=== PATIENT | female | born 1995 | race African-American/Black ===

== ENCOUNTER 2017-05-22 16:51 | Emergency (ER) | payer SELFPAY ==
[~2017-05-22] VITALS: Ht 175.3 cm; Wt 90.0 kg
[2017-05-22 17:34] VITALS: BP 128/68; PULSE 82; RESP 18; TEMP 98.4; O2SAT 99
--- NOTE | 2017-05-22 18:25 | PD ---
HPI Chief Complaint: Cold / Flu Symptoms Time Seen by Provider: 18:16 Travel History International Travel<30 days: No Contact w/Intl Traveler<30days: No Traveled to known affect area: No History of Present Illness HPI This is a 21-year-old female who presents for evaluation of nausea, vomiting, diarrhea. Symptoms started this morning. She reports 2 episodes of nonbloody emesis as well as 2 episodes of loose watery stool. She endorses a slight sore throat as well. She was able to eat some yogurt today. She denies eating anything unusual yesterday. Denies any sick contacts. Denies any abdominal pain, fevers, chills, myalgias, cough, congestion, rash or recent travel. Denies any dysuria or flank pain. She has no other complaints at this time. [facility] Past Medical History Medical History: Denies Significant Hx Developmental Delay: No Diminished Hearing: No Immunizations Current: Yes ?: Unknown Past Surgical History Surgical History: No Previous Surgery Social History Alcohol Use: No Tobacco Use: No Substance Use: No Allergies-Medications (Allergen,Severity, Reaction): Coded Allergies: No Known Allergies (Unverified Adverse Reaction, Unknown, 05/22/17) Reported Meds & Prescriptions Reported Meds & Active Scripts Active Zofran (Ondansetron HCl) 4 Mg Tab 4 Mg PO Q6HR PRN Magic Mouthwash Adult Liq (Multi-Ingredient Mouthwash/Gargle) 120 Ml Susp 10 Ml SWISH-SPIT ACHS Each 5mL contains: Nystatin 200,000units, Diphenhydramine 4.25mg, Viscous Lidocaine 10mg, Zafar syrup 0.8 mL Review of Systems Except as stated in HPI: all other systems reviewed are Neg Physical Exam Narrative GENERAL: Well-developed well-nourished female in no acute distress SKIN: Warm and dry. HEAD: Atraumatic. Normocephalic. EYES: Pupils equal and round. No scleral icterus. No injection or drainage. ENT: No nasal bleeding or discharge. Mucous membranes pink and moist. No oropharyngeal erythema or exudate. NECK: Trachea midline. No JVD. No lymphadenopathy. CARDIOVASCULAR: Regular rate and rhythm. No murmur appreciated. RESPIRATORY: No accessory muscle use. Clear to auscultation. Breath sounds equal bilaterally. GASTROINTESTINAL: Abdomen soft, non-tender, nondistended. Hepatic and splenic margins not palpable. MUSCULOSKELETAL: No obvious deformities. No clubbing. No cyanosis. No edema. NEUROLOGICAL: Awake and alert. No obvious cranial nerve deficits. Motor grossly within normal limits. Normal speech. Data Data Last Documented VS Vital Signs Date Time Temp Pulse Resp B/P (MAP) Pulse Ox O2 Delivery O2 Flow Rate FiO2 05/22/17 17:34 98.4 82 18 128/68 (88) 99 Orders Orders Influenzae A/B Antigen (05/22/17 16:58) Oral Rehydration (05/22/17 18:20) Ed Urine Pregnancytest Poc (05/22/17 18:20) Ondansetron Odt (Zofran Odt) (05/22/17 18:30) Ed Discharge Order (05/22/17 18:48) [facility] Medical Decision Making Medical Screen Exam Complete: Yes Emergency Medical Condition: Yes Medical Record Reviewed: Yes Differential Diagnosis Gastroenteritis, dehydration, pharyngitis, influenza, colitis Narrative Course 21-year-old female with one-day history of nausea, vomiting, diarrhea, sore throat. She appears well. Her abdomen is soft and nontender. She does not appear dehydrated. An influenza antigen test was performed in triage and is negative. Urine test was performed and is negative. The patient was given oral rehydration after Zofran with no difficulty. She'll be discharged with a short course of Zofran as well as magic mouthwash for her sore throat. Diagnosis Primary Impression: Nausea and vomiting Additional Impression: Pharyngitis Additional Instructions: Medication as needed. Stay well hydrated and well-nourished. Advance diet as tolerated. Return for any emergent medical conditions. Med/Other Pt SpecificInfo: Prescription(s) given Scripts Ondansetron (Zofran) 4 Mg Tab 4 MG PO Q6HR Y for NAUSEA OR VOMITING, #20 TAB 0 Refills Prov: Naseem Lee MD 05/22/17 Bbgpwfmv-Pexnxomaljxutvr-Bnteyutgu Liq (Magic Mouthwash Adult Liq) 120 Ml Susp 10 ML SWISH-SPIT ACHS for Mouth sores, #120 ML 0 Refills Each 5mL contains: Nystatin 200,000units, Diphenhydramine 4.25mg, Viscous Lidocaine 10mg, Zafar syrup 0.8 mL Prov: Naseem Lee MD 05/22/17 Disposition: 01 DISCHARGE HOME Condition: Stable Parag Davis May 22, 2017 18:25
[2017-05-22] MEDS ORDERED: ONDANSETRON ODT 4 MG TAB PO ONE (18:30)
[2017-05-22] MEDS ORDERED: MAGICADU2 SWISH-SPIT (18:48)
[2017-05-22] MEDS ORDERED: ZOFR4TAB PO (18:48)
== END 2017-05-22 18:59 | disposition home or self-care (01) ==
LOC: NEPK 16:51
DX: R11.2 Nausea with vomiting, unspecified (principal); J02.9 Acute pharyngitis, unspecified
CPT/HCPCS: 84703; 87804; 99283

== ENCOUNTER 2017-08-19 09:41 | Emergency (ER) | payer OTHER ==
[~2017-08-19] VITALS: Ht 177.8 cm; Wt 86.3 kg
[~2017-08-19 09:41] MED LIST: MAGICADU2 SWISH-SPIT; ZOFR4TAB PO
[2017-08-19 10:06] VITALS: BP 116/78; PULSE 70; RESP 18; TEMP 98.9; O2SAT 99
--- NOTE | 2017-08-19 11:32 | PD ---
HPI Chief Complaint: Abdominal Pain Time Seen by Provider: 11:32 Travel History International Travel<30 days: No Contact w/Intl Traveler<30days: No Traveled to known affect area: No History of Present Illness HPI 21-year-old female came to the emergency room with history of abdominal discomfort that started yesterday. Patient says today it has gone but she was constipated yesterday. She vomited twice last night and today started with diarrhea. The initial stool was dark in color. She told her grandmother about it who suggested that she should come to the emergency room. Currently patient does not have any more abdominal pain or vomiting. She has had 2-3 episodes of diarrhea that is nonbloody. Patient has had these symptoms in the past she said. Vital signs are stable. She does not appear to be in any distress. Abdominal pain yesterday was in the lower abdomen. No history of discharge. [facility] Past Medical History Narrative Medical List of her past medical, surgical, social and family history is reviewed from the nursing note Developmental Delay: No Diminished Hearing: No Immunizations Current: Yes ?: Not LMP: 07/22/17 Social History Alcohol Use: No Tobacco Use: No Substance Use: No Allergies-Medications (Allergen,Severity, Reaction): Coded Allergies: No Known Allergies (Unverified Adverse Reaction, Unknown, 05/22/17) Comments No known drug allergies Reported Meds & Prescriptions Reported Meds & Active Scripts Active Zofran (Ondansetron HCl) 4 Mg Tab 4 Mg PO Q6HR PRN Magic Mouthwash Adult Liq (Multi-Ingredient Mouthwash/Gargle) 120 Ml Susp 10 Ml SWISH-SPIT ACHS Each 5mL contains: Nystatin 200,000units, Diphenhydramine 4.25mg, Viscous Lidocaine 10mg, Zafar syrup 0.8 mL Narrative Medication List of her home medications reviewed from the nursing note Review of Systems Except as stated in HPI: all other systems reviewed are Neg Gastrointestinal: Positive: Nausea, Vomiting, Diarrhea, Abdominal Pain Physical Exam Narrative GENERAL: Awake, alert, no obvious distress SKIN: Focused skin assessment warm/dry. HEAD: Atraumatic. Normocephalic. EYES: Pupils equal and round. No scleral icterus. No injection or drainage. ENT: No nasal bleeding or discharge. Mucous membranes pink and moist. NECK: Trachea midline. No JVD. CARDIOVASCULAR: Regular rate and rhythm. No murmur appreciated. RESPIRATORY: No accessory muscle use. Clear to auscultation. Breath sounds equal bilaterally. GASTROINTESTINAL: Abdomen soft, non-tender, nondistended. Hepatic and splenic margins not palpable. MUSCULOSKELETAL: No obvious deformities. No clubbing. No cyanosis. No edema. NEUROLOGICAL: Awake and alert. No obvious cranial nerve deficits. Motor grossly within normal limits. Normal speech. PSYCHIATRIC: Appropriate mood and affect; insight and judgment normal. Data Data Last Documented VS Vital Signs Date Time Temp Pulse Resp B/P (MAP) Pulse Ox O2 Delivery O2 Flow Rate FiO2 08/19/17 10:06 98.9 70 18 116/78 (91) 99 MDM Medical Decision Making Medical Screen Exam Complete: Yes Emergency Medical Condition: Yes Medical Record Reviewed: Yes Differential Diagnosis Acute gastroenteritis, viral illness Narrative Course 11:58 AM I am comfortable discharging this patient home. Vital signs are stable. Hemoccult was negative. Procedures EKG Prior to Arrival: No HemaPrompt Point of Care Internal Pos. & Neg. Controls: Passed Fecal Specimen Occult Blood: Negative Diagnosis Primary Impression: Viral illness Additional Impression: Acute gastroenteritis Additional Instructions: Drink lots of fluid to stay hydrated. Tesfaye diet that consists of banana, rice , applesauce, toast and tea would help with the diarrhea. Return to the emergency room if the condition worsens. Med/Other Pt SpecificInfo: No Change to Meds Disposition: 01 DISCHARGE HOME Condition: Stable Brian Parra MD August 19, 2017 11:32
== END 2017-08-19 12:04 | disposition home or self-care (01) ==
LOC: NEPD 09:41
DX: B34.9 Viral infection, unspecified (principal); K52.9 Noninfective gastroenteritis and colitis, unspecified
CPT/HCPCS: 99282